=== PATIENT | male | born 1950 | race Caucasian/White ===

== ENCOUNTER 2019-03-15 15:19 | Inpatient (IN) | payer OTHER ==
[~2019-03-15] VITALS: Ht 185.4 cm; Wt 103.2 kg
[~2019-03-15 15:19] MED LIST: IBUP400; LISI10 PO; MELO7.5; NAPR220; OMEP20ER; TRAM50 PO
[2019-03-15] MEDS ORDERED: GABA100 PO (16:03)
[2019-03-15 16:50] LABS: BASOPHILS ABSOLUTE AUTO 0.03 K/mm3 (0.00-0.23); BASOPHILS PERCENT AUTO 1 % (0-2); EOSINOPHILS ABSOLUTE AUTO 0.19 K/mm3 (0.00-0.68); EOSINOPHILS PERCENT AUTO 3 % (0-6); Hematocrit 42.3 % (37.0-53.0); Hemoglobin 13.8 g/dL (13.5-17.5); IMMATURE GRAN ABSOLUTE AUTO 0.02 K/mm3 (0.00-0.10); IMMATURE GRAN PERCENT AUTO 0 % (0-1); LYMPHOCYTES ABSOLUTE AUTO 1.34 K/mm3 (0.84-5.20); LYMPHOCYTES PERCENT AUTO 22 % (21-46); MONOCYTES ABSOLUTE AUTO 0.63 K/mm3 (0.16-1.47); MONOCYTES PERCENT AUTO 11 % (4-13); Mean Corpuscular HGB 28.1 pg (26.0-34.0); Mean Corpuscular HGB Conc 32.6 g/dL (31.5-36.5); Mean Corpuscular Volume 86 fL (80-100); Mean Platelet Volume 8.7 fL (9.1-12.4); NEUTROPHILS PERCENT AUTO 63 % (41-73); Platelet Count 267 K/mm3 (150-400); RDW Coefficient Variation 12.7 % (11.7-14.2); RDW Standard Deviation 40.1 fL (35.1-46.3); Red Blood Cell Count 4.91 M/mm3 (4.30-5.90); White Blood Cell Count 6.01 K/mm3 (4.00-11.30)
[2019-03-15 17:05] LABS: Alanine Aminotransfer (ALT/SGP 28 U/L (12-78); Albumin, Blood 3.6 g/dL (3.4-5.0); Albumin/Globulin Ratio 0.8 (0.8-1.8); Alk Phos 83 U/L (50-136); Anion Gap 4 mmol/L (6-16); Aspartate Aminotrans (AST/SGOT 23 U/L (12-37); Bilirubin, Total 0.4 mg/dL (0.1-1.0); Blood Urea Nitrogen 14 mg/dL (8-24); Bun/Creatinine Ratio 14.4 (12.0-20.0); CO2, Blood 29 mmol/L (21-32); Chloride, Blood 104 mmol/L (98-108); Creatinine, Blood 0.97 mg/dL (0.60-1.20); Globulin, Blood 4.3 g/dL (2.2-4.0); Glomerular Filtration Rate >60 (60-); Glucose, Blood 87 mg/dL (70-99); Potassium, Blood 3.8 mmol/L (3.5-5.5); Sodium, Blood 137 mmol/L (136-145); Total Protein, Blood 7.9 g/dL (6.4-8.2)
[2019-03-15 17:14] LABS: International Normalized Ratio 0.97; Prothrombin Time Results 10.3 Sec (9.7-11.5)
--- NOTE | 2019-03-15 18:35 | NUR ---
REPORT RECIEVED FROM JOSE BENTON AT THIS TIME. ROOM READY FOR PATIENT TO ARRIVE
--- NOTE | 2019-03-16 06:10 | NUR ---
SHIFT SUMMARY PT ADMITTED FOR DVT OF THE RIGHT LEG. PT ARRIVES ON A HEPARIN DRIP, INFUSING AT 13U/KG/HR. AT BEDSIDE. PT ALERT AND ORIENTED, UP TO BATHROOM WITH SBA. PT STEADY ON FEET. USES CALL LIGHT APPROPRIATELY. PT ALSO HAS IVF'S INFUSING CONCURRENTLY WITH HEPARIN. HEPARIN BUMPED UP TO 15U/KG/HR DURING THE NIGHT. PT NPO AFTER MIDNIGHT FOR THROMBECTOMY TODAY. MEDICATED WITH TYLENOL FOR CHRONIC LEFT SHOULDER/ARM PAIN. NO ACUTE EVENTS NOTED DURING THE NIGHT, WILL CONTINUE TO MONITOR.
--- NOTE | 2019-03-16 15:22 | NUR ---
NURSE RECEIVED A CALL FROM DR VALDES WHO STATES THAT HE WILL DO THE THROMBECTOMY ON Sunday03/17/19. HE STATED THAT PATIENT SHOULD BE NPO AT MIDNIGHT AND THAT IT WAS OKAY FOR HIM TO EAT NOW. NURSE IN IMMEDIATELY WITH FOOD FOR PATIENT.
--- NOTE | 2019-03-16 18:52 | NUR ---
SHIFT SUMMARY PT NPO FOR MOST OF THE SHIFT AWAITING THROMBECTOMY, SEE PRIOR NOTE. PT UP AD TONI IN ROOM. HEPARIN INFUSING PER ORDER. RATE INCREASED PER PHARMACY X2. PT HYPERTENSIVE WITH AFTERNOON VITALS 161/102. NURSE NOTIFIED DR TRIMBLE WHO ORDERED HYDRALAZINE. ONE DOSE GIVEN PER EMAR, BP IMPROVED . BED IN LOW POSITION, CALL LIGHT WITHIN REACH. NO OTHER CHANGES THIS SHIFT
[2019-03-17 05:48] LABS: BASOPHILS ABSOLUTE AUTO 0.03 K/mm3 (0.00-0.23); BASOPHILS PERCENT AUTO 1 % (0-2); EOSINOPHILS PERCENT AUTO 4 % (0-6); Hematocrit 39.9 % (37.0-53.0); Hemoglobin 13.1 g/dL (13.5-17.5); IMMATURE GRAN ABSOLUTE AUTO 0.02 K/mm3 (0.00-0.10); IMMATURE GRAN PERCENT AUTO 0 % (0-1); LYMPHOCYTES ABSOLUTE AUTO 1.32 K/mm3 (0.84-5.20); LYMPHOCYTES PERCENT AUTO 23 % (21-46); MONOCYTES PERCENT AUTO 11 % (4-13); Mean Corpuscular HGB Conc 32.8 g/dL (31.5-36.5); Mean Corpuscular Volume 85 fL (80-100); Mean Platelet Volume 9.1 fL (9.1-12.4); NEUTROPHILS ABSOLUTE AUTO 3.53 K/mm3 (1.96-9.15); NEUTROPHILS PERCENT AUTO 62 % (41-73); Platelet Count 293 K/mm3 (150-400); RDW Coefficient Variation 12.7 % (11.7-14.2); RDW Standard Deviation 39.3 fL (35.1-46.3); Red Blood Cell Count 4.68 M/mm3 (4.30-5.90)
--- NOTE | 2019-03-17 05:58 | NUR ---
SHIFT SUMMARY PT SLEPT FAIR DURING NIGHT, REMAINED WITH PT DURING THE NIGHT. PT NPO AFTER MIDNIGHT FOR PROCEDURE THIS AM. PT GIVEN ICE PACK FOR RIGHT SHOULDER/ARM PAIN, WILL CONTINUE TO MONITOR.
[2019-03-18 05:06] LABS: BASOPHILS ABSOLUTE AUTO 0.03 K/mm3 (0.00-0.23); BASOPHILS PERCENT AUTO 1 % (0-2); EOSINOPHILS ABSOLUTE AUTO 0.18 K/mm3 (0.00-0.68); EOSINOPHILS PERCENT AUTO 3 % (0-6); Hematocrit 41.7 % (37.0-53.0); Hemoglobin 13.5 g/dL (13.5-17.5); IMMATURE GRAN ABSOLUTE AUTO 0.02 K/mm3 (0.00-0.10); IMMATURE GRAN PERCENT AUTO 0 % (0-1); LYMPHOCYTES ABSOLUTE AUTO 1.59 K/mm3 (0.84-5.20); LYMPHOCYTES PERCENT AUTO 25 % (21-46); MONOCYTES PERCENT AUTO 9 % (4-13); Mean Corpuscular HGB 27.8 pg (26.0-34.0); Mean Corpuscular HGB Conc 32.4 g/dL (31.5-36.5); Mean Corpuscular Volume 86 fL (80-100); Mean Platelet Volume 8.8 fL (9.1-12.4); NEUTROPHILS ABSOLUTE AUTO 3.98 K/mm3 (1.96-9.15); NEUTROPHILS PERCENT AUTO 62 % (41-73); Platelet Count 291 K/mm3 (150-400); RDW Coefficient Variation 12.8 % (11.7-14.2); RDW Standard Deviation 39.8 fL (35.1-46.3); Red Blood Cell Count 4.85 M/mm3 (4.30-5.90)
--- NOTE | 2019-03-18 05:29 | NUR ---
SHIFT SUMMARY PT HAD UNEVENTFUL NIGHT. LIDOCAINE PATCH PLACED ON LEFT SHOULDER AREA AT HS ORDERED. PT C/O BURNING AND TOOK PATCH OFF. REQUESTED TYLENOL AND AN ICE PACK, GIVEN. HAS BEEN NPO SINCE MIDNIGHT FOR PROCEDURE TODAY. REMAINS WITH PT T/O NIGHT. IV HEPARIN AND IVF'S INFUSING PER PUMP WITHOUT DIFFICULTY. WILL CONTINUE TO MONITOR.
[2019-03-18 11:32] LABS: Source, Urine Catheter
--- NOTE | 2019-03-18 11:32 | NUR ---
PT ARRIVED IN ICU AT 1000 S/P THROMBECTOMY/THROMOLYSIS OF RIGHT DVT. PT AWAKE AND ALERT. C/O PAIN TO RIGHT LEG AND LEFT SHOULDER (FELL ON SHOULDER 5MTHS AGO) 02/14. CIRC CHECK TO BLE WNL. TPA/CATH VINICIO INFUSING AT 25MLS/HR TO RIGHT P.T. SITE. HEPARIN INFUSING TO POPLITEAL SITE AT 6MLS/HR. DR VALDES CALLED FOR PAIN MEDS AND URINARY RETENTION; FENT 25MCG GIVEN IV, 14F COUDE PLACED W/O DIFF. UA SENT PER PROTOCOL. NEURO CHECK WNL AT 1000 AND 1100; NO NEURO DEFICITS NOTED. FAMILY AT BEDSIDE.
[2019-03-18 11:43] LABS: Bilirubin, Urine Neg (Neg); Blood, Urine Neg (Neg); Glucose Qualitative, Urine Neg (Neg); Ketones, Urine Neg (Neg); Leukocyte Esterase, Urine Neg (Neg); Nitrite, Urine Neg (Neg); Protein, Urine Neg (Neg); Urobilinogen, Urine NORM (Normal); pH, Urine 6.5 (5.0-8.0)
[2019-03-18 12:01] LABS: Appearance, Urine Clear (Clear); Color, Urine Yellow (P-Yellow)
--- NOTE | 2019-03-18 12:26 | NUR ---
BP 178/117. PT C/O ACHING PAIN TO RIGHT LEG 4-5. CIRC CHECK WNL, IV SITES TO LEG WNL, NEURO CHECK WNL. FENT 25MCG GIVEN IV FOR PAIN, HYDRALAZINE 10 IVP GIVEN.
--- NOTE | 2019-03-18 14:53 | NUR ---
PT C/O MORE SEVERE PAIN 03/17 TO AREA RIGHT ABOVE RIGHT P.T. SHEATH. NO REDNESS OR SWELLING NOTED TO AREA, IV PATENT AND INFUSING. PT W CONTINUED HTN. DR VALDES CALLED R/T THESE ISSUES. ORDERS TO GIVE FENT AND VERSED 1MG ALONG WITH LABETALOL IV. PT TO RETURN TO HOUSEHOLD COORDINATOR SOON.
--- NOTE | 2019-03-18 15:08 | NUR ---
PT STATES PAIN IS NOW 2/10 TO RIGHT LEG. PT NAUSEATED, ZOFRAN GIVEN. 02 PLACED FOR SATS 88-91%, PT DENIES SOB OR PAIN OTHER THAN R LEG PAIN
--- NOTE | 2019-03-18 16:00 | NUR ---
RIGHT SHEATH SITES ARE WNL, INFUSING HEPARIN AND TPA/CATHFLO, NO SWEELING, OR REDNESS NOTED. RIGHT LEG ELEVATED SLIGHTLY ON PILLOW FOR COMFORT. NEURO CHECK WNL, NO DEFICITS NOTED.
--- NOTE | 2019-03-18 17:33 | NUR ---
PT TAKEN BACK TO [facility] DRIVER FOR PICTURES/VIEWS OF RIGHT LEG.
--- NOTE | 2019-03-18 18:26 | NUR ---
PT RETURNED FROM [facility] AWAKE. C/O PAIN TO R LEG 11/17. PT EATING DINNER, TOLERATING WELL. HEP AND CATH VINIICO INFUSING BEFORE. CIRC CHECK WNL, NEURO CHECK WNL. NO SWELLING, OR BLEEDING TO SHEATH SITES. SOME TENDERNESS TO CALF AND ANKLE AREA
--- NOTE | 2019-03-18 21:12 | NUR ---
START OF SHIFT: BEDSIDE REPORT FROM GUNJAN GARCIA. PT AWAKE, A+O AND WATCHING TV WITH SPOUSE AT BEDSIDE. VSS. R POPLITEAL AND PEDAL ACCESS SITES ASSESSED AND WNL. HEPARIN AND CATH-VINICIO gtt VERIFIED. PEDAL PULSES + X2. PT REPOSITIONED SLIGHT TO THE RIGHT SIDE AND COVERED WITH WARM BLANKETS.
--- NOTE | 2019-03-18 22:03 | NUR ---
PT C/O INCREASIN PAIN AND BURNING TO L SHOULDER AND INCREASING PAIN TO R LE. PT MEDICATED WITH BENADRYL, FENTANYL, AND ICE APPLIED TO L SHOULDER. SPOUSE REMAINS AT BEDSIDE.
--- NOTE | 2019-03-19 00:19 | NUR ---
NEURO CHECK WNL. R POPLITEAL AND PEDAL SHEATHS WNL. VSS. PT SLEEPING BUT AWAKENS EASILY TO RN AT BEDSIDE. CALL LIGHT WITHIN REACH.
[2019-03-19 04:03] LABS: BASOPHILS ABSOLUTE AUTO 0.02 K/mm3 (0.00-0.23); BASOPHILS PERCENT AUTO 0 % (0-2); EOSINOPHILS ABSOLUTE AUTO 0.08 K/mm3 (0.00-0.68); EOSINOPHILS PERCENT AUTO 1 % (0-6); Hematocrit 39.1 % (37.0-53.0); Hemoglobin 12.9 g/dL (13.5-17.5); IMMATURE GRAN ABSOLUTE AUTO 0.04 K/mm3 (0.00-0.10); IMMATURE GRAN PERCENT AUTO 1 % (0-1); LYMPHOCYTES ABSOLUTE AUTO 0.89 K/mm3 (0.84-5.20); LYMPHOCYTES PERCENT AUTO 11 % (21-46); MONOCYTES ABSOLUTE AUTO 0.87 K/mm3 (0.16-1.47); MONOCYTES PERCENT AUTO 11 % (4-13); Mean Corpuscular HGB 28.2 pg (26.0-34.0); Mean Corpuscular Volume 85 fL (80-100); Mean Platelet Volume 8.7 fL (9.1-12.4); NEUTROPHILS ABSOLUTE AUTO 5.88 K/mm3 (1.96-9.15); NEUTROPHILS PERCENT AUTO 76 % (41-73); Platelet Count 205 K/mm3 (150-400); RDW Coefficient Variation 13.2 % (11.7-14.2); RDW Standard Deviation 40.2 fL (35.1-46.3); Red Blood Cell Count 4.58 M/mm3 (4.30-5.90); White Blood Cell Count 7.78 K/mm3 (4.00-11.30)
--- NOTE | 2019-03-19 05:43 | NUR ---
PT RESTED T/O NOC WITH OCCASIONAL C/O LEFT SHOULDER AND RLE PAIN. PT REPORTED RELIEF AFTER FENTNYL 50mcg ADMIN (X2). VITALS REMAINED STABLE. NEURO CHECKS REMAINED WNL WITH RLE REMAINING STRAIGHT AND POPLITEAL AND P.T. SHEATHS REMAINING PATENT AND SECURE. FIBRINOGEN VALUE DECREASED BUT REMAINED WITHIN THE PARIMETERS PER ORDER. HEPARIN 6mL/hr CONTINUING gtt TO THE POPLITEAL SHEATH AND CATHFLO 1mg/hr THROUGH PEDAL SHEATH. PT'S SPOUSE REMAINED AT BEDSIDE. WILL REPORT OFF TO ONCOMING RN.
--- NOTE | 2019-03-19 08:32 | NUR ---
CARE ASSUMED CARE AND REPORT ASSUMED FROM PATY GARCIA. PT SITTING UP IN BED WATCHING TV. AT BEDSIDE. TWO SHEATHS SECURED IN R LOWER LEG WITH HEPARIN INFUSING INTO ONE AND CATHFLO INFUSING INTO THE SECOND ONE. PEDAL PULSES PALPABLE AND 2+, LEG IS WARM AND COLOR PINK. VSS. NSR, HR 80S. AFEBRILE. SPO2 95% ON RA. LUNG SOUNDS CLEAR. C/O MILD PAIN TO LEG AND MODERATE PAIN TO L SHOULDER; FENTANYL 50 MCG IVP GIVEN FOR PAIN CONTROL. LIDOCAINE PATCH REMOVED FROM L SHOULDER. REMAINS NPO AT THIS TIME. WILL CONTINUE TO MONITOR.
--- NOTE | 2019-03-19 12:12 | NUR ---
REASSESSMENT PT REMAINS IN BED ATTEMPTING TO KEEP R LEG STRAIGHT POSSIBLE. 2 SHEATHS REMAIN SECURED IN R LEG; ONE INFUSING HEPARIN AND ONE INFUSING CATHFLO. SMALL AMOUNT OF BLOODY OOZE FROM POPLITEAL SHEATH; WILL MONITOR. PT REMAINS NPO. AWIAITNG BEEF SKINNER. AT BEDSIDE. FENTANYL GIVEN FOR PAIN CONTROL. VSS. AFEBRILE. NSR, HR 80S. PENA CATH REMAINS SECURED. PT HAS OCCASIONAL PRODUCTIVE COUGH AND STATES HE HIS SINUSES ARE DRIANING AND THAT HE NORMALLY HAS SEASONAL ALLERGIES. PEDAL PULSES PALPABLE, FOOT IS PINK AND WARM. WILL CONTINUE TO MONTIOR.
--- NOTE | 2019-03-19 12:38 | NUR ---
HANDOFF REPORT HANDED OFF TO ENRIKE GRIJALVA RN AT THIS TIME.
--- NOTE | 2019-03-19 13:30 | NUR ---
Assumed care from Liza GARCIA. Patient has left for [facility] , he has had TPA infusing to RLE Prior to assuming care. has followed him out.
--- NOTE | 2019-03-19 15:30 | NUR ---
Patient returned at 1430 and has two CHG dressing, one on right popiteal area and one and dorsalis pedis. Both dressings are clead dry and intact and 2+ pedal pulses. Dr Castro has been in to see spouse and have communicated with Dr Vincent for any new orders prior to finishing discharge.
[2019-03-19] MEDS ORDERED: TYLENOL325 MG PO (16:36)
[2019-03-19] MEDS ORDERED: BENADRYL25 MG PO (16:37)
[2019-03-19] MEDS ORDERED: HYDCHL25 PO (16:38)
[2019-03-19] MEDS ORDERED: LIDO700A20 TOP (16:39)
[2019-03-19] MEDS ORDERED: ONDA4ODT MM (16:40)
[2019-03-19] MEDS ORDERED: MELA3 PO (16:40)
[2019-03-19] MEDS ORDERED: XARELTO20 MG PO (16:41)
[2019-03-19] MEDS ORDERED: XARELTO15 MG PO (16:41)
--- NOTE | 2019-03-19 17:14 | NUR ---
Patient was discharged home. He and his were given written discharge orders. I called and faxed meds to [facility] pharmacys. Reviewed all current and new meds with patient and spouse. They returned understanding and gave them a card if they need more information. I pulled two UV'as from right arm and placed gauze and wrapped with coban. Gave patient education about DVT's. Gave free month xarellto. He was taken to [facility] by wheelchair. Gave verbal instructions of site care and partial weight bearing.
== END 2019-03-19 17:00 | disposition home or self-care (01) | DRG 272 ==
LOC: ER 15:19 → MEDS 17:17 → ICUE 17:17 → MEDS 18:47 → ICUE 03-18 10:03
PROVIDERS: Physician Assistant; Radiology Diagnostic Radiology; ADMIT Family Medicine
PROC: 06CM3ZZ Extirpation of Matter from Right Femoral Vein, Percutaneous Approach (ICD-10-PCS; principal; 2019-03-18)
PROC: 06CY3ZZ Extirpation of Matter from Lower Vein, Percutaneous Approach (ICD-10-PCS; 2019-03-18)
PROC: 3E03317 Introduction of Other Thrombolytic into Peripheral Vein, Percutaneous Approach (ICD-10-PCS; 2019-03-18)
DX: I82.4Z1 Acute embolism and thrombosis of unspecified deep veins of right distal lower extremity (principal); I82.431 Acute embolism and thrombosis of right popliteal vein; I82.441 Acute embolism and thrombosis of right tibial vein; K21.9 Gastro-esophageal reflux disease without esophagitis; M54.9 Dorsalgia, unspecified; I10 Essential (primary) hypertension; M25.512 Pain in left shoulder
CPT/HCPCS: 36005; 36415; 37187; 37212; 37213; 37214; 37238; 37239; 37248; 37252; 51702; 75820; 75825; 76937; 80053; 81003; 85025; 85384; 85610; 85730; 93971; 96365; 99152; 99153; 99284-25; A9270; C1724; C1725; C1769; C1887; C1894; J0360; J0780; J1644; J2250; J2405; J2997; J3010; J7030; J7040; J7050; Q0163; Q9967

== ENCOUNTER 2020-09-16 11:20 | Day surgery (SDC) | payer OTHER ==
[~2020-09-16] VITALS: Ht 182.9 cm; Wt 107.8 kg
[~2020-09-16 11:20] MED LIST changes: +BENADRYL25 MG PO; +GABA100 PO; +HYDCHL25 PO; +LIDO700A20 TOP; +MELA3 PO; +OMEP20ER PO; +ONDA4ODT MM; +TYLENOL325 MG PO; +XARELTO15 MG PO; +XARELTO20 MG PO
--- NOTE | 2020-09-16 12:05 | NUR ---
09/16/20 1205 Karen Long (Lisa ELEVATED BP REPORTED TO ANESTHESIOLOGIST.
--- NOTE | 2020-09-16 13:28 | NUR ---
09/16/20 1328 Brenda Riggins LEFT ELBOW DRY, RED. NOT OPEN. 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
== END 2020-09-16 15:38 | disposition home or self-care (01) ==
LOC: ORSCSDS 11:20
DX: M75.122 Complete rotator cuff tear or rupture of left shoulder, not specified as traumatic (principal); M75.22 Bicipital tendinitis, left shoulder; M75.42 Impingement syndrome of left shoulder; K21.9 Gastro-esophageal reflux disease without esophagitis; Z79.899 Other long term (current) drug therapy
CPT/HCPCS: C1713; J0171; J0690; J2250; J2704; J3010; J7120

== ENCOUNTER 2022-11-15 17:52 | Emergency (ER) | payer OTHER ==
[~2022-11-15] VITALS: Ht 185.4 cm; Wt 106.1 kg
== END 2022-11-15 18:51 | disposition home or self-care (01) ==
LOC: ER 17:52
DX: I82.402 Acute embolism and thrombosis of unspecified deep veins of left lower extremity (principal); Z79.899 Other long term (current) drug therapy
CPT/HCPCS: 99281

== ENCOUNTER 2023-02-26 10:23 | Inpatient (IN) | payer OTHER ==
[~2023-02-26] VITALS: Ht 185.4 cm; Wt 109.2 kg
[2023-02-26] VITALS (17 sets, daily range): BP systolic 105–139; BP diastolic 67–92
[~2023-02-26 10:23] MED LIST changes: +AZELASTINE137 MCG/01; +CEFU500T30 PO
[2023-02-26 12:46] LABS: Hematocrit 46.9 % (37.0-53.0); Hemoglobin 15.4 g/dL (13.5-17.5); Mean Corpuscular HGB 27.4 pg (26.0-34.0); Mean Corpuscular HGB Conc 32.8 g/dL (31.5-36.5); Mean Corpuscular Volume 83 fL (80-100); Mean Platelet Volume 9.7 fL (9.1-12.4); Platelet Count 209 K/mm3 (150-400); RDW Coefficient Variation 13.1 % (11.7-14.2); Red Blood Cell Count 5.63 M/mm3 (4.30-5.90); White Blood Cell Count 5.09 K/mm3 (4.00-11.30)
[2023-02-26 12:56] LABS: Albumin, Blood 4.2 g/dL (3.4-5.0); Albumin/Globulin Ratio 1.3 (0.8-1.8); Bilirubin, Total 0.5 mg/dL (0.1-1.0); Bun/Creatinine Ratio 16.5 (12.0-20.0); Calcium, Blood 9.8 mg/dL (8.5-10.1); Creatinine, Blood 1.09 mg/dL (0.60-1.20); Globulin, Blood 3.2 g/dL (2.2-4.0); Total Protein, Blood 7.4 g/dL (6.4-8.2)
[2023-02-26 12:59] LABS: International Normalized Ratio 1.04; Prothrombin Time Results 10.9 Sec (9.7-11.5)
[2023-02-26] MEDS ORDERED: PSEUDOEPHEDRINE30 M1 PO (13:03)
[2023-02-26 17:52] LABS: BASOPHILS ABSOLUTE AUTO 0.03 K/mm3 (0.00-0.23); BASOPHILS PERCENT AUTO 0 % (0-2); EOSINOPHILS ABSOLUTE AUTO 0.08 K/mm3 (0.00-0.68); EOSINOPHILS PERCENT AUTO 1 % (0-6); Hematocrit 45.3 % (37.0-53.0); Hemoglobin 14.7 g/dL (13.5-17.5); IMMATURE GRAN ABSOLUTE AUTO 0.04 K/mm3 (0.00-0.10); IMMATURE GRAN PERCENT AUTO 0 % (0-1); LYMPHOCYTES ABSOLUTE AUTO 1.16 K/mm3 (0.84-5.20); LYMPHOCYTES PERCENT AUTO 11 % (21-46); MONOCYTES ABSOLUTE AUTO 0.69 K/mm3 (0.16-1.47); MONOCYTES PERCENT AUTO 7 % (4-13); Mean Corpuscular HGB 27.6 pg (26.0-34.0); Mean Corpuscular HGB Conc 32.5 g/dL (31.5-36.5); Mean Corpuscular Volume 85 fL (80-100); Mean Platelet Volume 9.5 fL (9.1-12.4); NEUTROPHILS ABSOLUTE AUTO 8.47 K/mm3 (1.96-9.15); NEUTROPHILS PERCENT AUTO 81 % (41-73); Platelet Count 213 K/mm3 (150-400); RDW Coefficient Variation 13.2 % (11.7-14.2); RDW Standard Deviation 41.1 fL (35.1-46.3); Red Blood Cell Count 5.33 M/mm3 (4.30-5.90); White Blood Cell Count 10.47 K/mm3 (4.00-11.30)
--- NOTE | 2023-02-26 19:25 | NUR ---
ICU ADMISSION / SHIFT SUMMARY: PT ARRIVED TO ICU-02 AT APPROX 1620 S/P CORONARY ANGIOGRAM & STENT PLACEMENT. ON ARRIVAL, THE PT IS A&O TO ALL, PLEASANT & COOPERATIVE. HE DOES NEED SOME REMINDERS NOT TO USE HIS RIGHT WRIST AT TIMES. TR BAND IN PLACE TO RIGHT WRIST INFLATED W/ 12 CC AIR. DIGITS ARE PINK W/ CAP REFILL 3 SEC. TENDER TO PALPATION, SENSATION INTACT. HE STS HAVING CP 2/10 AT THAT TIME, CP HAS NOW COMPLETELY RESOLVED. LS CLEAR, PT ON RA W/ O2 SATS > 92%. MONITOR SHOWS SR W/ HR 60-70s, BP STABLE. PT HAS NO GI COMPLAINTS & IS TOLERATING PO INTAKE WELL. VOIDS W/O DIFFICULTY USING URINAL AT BEDSIDE. SKIN CONDITION OVERALL INTACT, FRAGILE. RIGHT RADIAL PUNCTURE SITE WNL; NO BLEEDING OR HEMATOMA FORMATION NOTED. TR BAND REMAINS FULLY INFLATED FOR ORDERS TO BEGIN DELFLATION AT LEAST 3 HRS AFTER TR BAND PLACED.
[2023-02-26 22:25] LABS: CPK Creatine Kinase 230 U/L (39-308)
[2023-02-27] VITALS (10 sets, daily range): BP systolic 108–144; BP diastolic 70–90
--- NOTE | 2023-02-27 03:55 | NUR ---
AT APPROX 0218 PT REPORTED CHEST PAIN WITH 3/10 PAIN. SBP AT THIS TIME 140'S, HR 70'S. PT REPORTS THIS PAIN WAS THE SAME BEFORE HE WAS SENT TO THE MH TEACHER YESTERDAY. MEDICATED WITH NITRO PER EMAR WITH NO RESOLUTION TO CHEAT PAIN. EKG DONE AND SENT TO DR NAGEL. PT BEGAN TO BE DIAPHORETIC WITH SOB. C/O CONSTANT CHEST PAIN AT THIS TIME WELL WITH 4/[address] NAGEL AT 0240 WITH CURRENT INFORMATION. MORPHINE GIVEN WITH NEW ORDER OF DILAUDID WELL. ANOTHER EKG DONE 30 MINS AFTER MEDICATION ADMIN. PAIN REPORTED BY PT AT THAT TIME OF 10/17. NO NEW ORDERS FROM DR NAGEL AT THIS TIME. NO SIGNIFICANT CHANGES TO EKG.
[2023-02-27 05:50] LABS: BASOPHILS ABSOLUTE AUTO 0.02 K/mm3 (0.00-0.23); BASOPHILS PERCENT AUTO 0 % (0-2); EOSINOPHILS ABSOLUTE AUTO 0.06 K/mm3 (0.00-0.68); EOSINOPHILS PERCENT AUTO 1 % (0-6); Hematocrit 41.4 % (37.0-53.0); Hemoglobin 13.4 g/dL (13.5-17.5); IMMATURE GRAN ABSOLUTE AUTO 0.03 K/mm3 (0.00-0.10); IMMATURE GRAN PERCENT AUTO 0 % (0-1); LYMPHOCYTES ABSOLUTE AUTO 0.93 K/mm3 (0.84-5.20); LYMPHOCYTES PERCENT AUTO 10 % (21-46); MONOCYTES PERCENT AUTO 9 % (4-13); Mean Corpuscular HGB 27.2 pg (26.0-34.0); Mean Corpuscular HGB Conc 32.4 g/dL (31.5-36.5); Mean Corpuscular Volume 84 fL (80-100); Mean Platelet Volume 9.9 fL (9.1-12.4); NEUTROPHILS ABSOLUTE AUTO 7.59 K/mm3 (1.96-9.15); NEUTROPHILS PERCENT AUTO 80 % (41-73); Platelet Count 194 K/mm3 (150-400); RDW Coefficient Variation 13.3 % (11.7-14.2); RDW Standard Deviation 41.1 fL (35.1-46.3); Red Blood Cell Count 4.93 M/mm3 (4.30-5.90); White Blood Cell Count 9.53 K/mm3 (4.00-11.30)
[2023-02-27 06:13] LABS: Bun/Creatinine Ratio 17.8 (12.0-20.0); Calcium, Blood 8.7 mg/dL (8.5-10.1); Creatinine, Blood 1.07 mg/dL (0.60-1.20); Potassium, Blood 4.3 mmol/L (3.5-5.5)
--- NOTE | 2023-02-27 06:15 | NUR ---
END OF SHIFT SUMMARY A/O X4. PT SPOUSE IN ROOM WITH PT ALL NIGHT. RESP- >93% ON RA. PT BECAME SOB AROUND 0230 WHEN HAVING CHEST PAIN WELL. 2L NC GIVEN FOR COMFORT. CARDIAC- NSR. SBP 110'S. HR 60-70'S. PLEASE SEE PRIOR NOTE ON CHEST PAIN EPISODE EARLY IN THE AM. AGROSTAT ADMINISTERED AND RUNNING PER EMAR. AGROSTAT TO BE DC'D AT 0900 TODAY WITH START OF XARELTO AT THAT TIME. GI,- PT USES URINAL INDEPENDANTLY. NO BM THIS SHIFT. PT TAKES ORAL MEDICATIONS WITHOUG DIFFICULTY WITH WATER. PT IS VERY HARD OF HEARING. WILL CONTINUE TO MONITOR PT UNTIL REPORT GIVEN TO AM RN.
--- NOTE | 2023-02-27 09:15 | NUR ---
ASSUMED CARE / DR NAGEL: REPORT RECEIVED FROM AYLA Melo RN. ASSUMED CARE OF THIS PT AT APPROX 0700. ON ASSESSMENT, THE PT IS AWAKE, A&O TO ALL. HE DENIES CURRENT CP OR DISCOMFORT. LS CLEAR, PT ON RA W/ O2 SATS > 92%. MONITOR SHOWS SR W/ HR 60-70s, BP STABLE. NO GI COMPLAINTS, TOLERATING PO INTAKE WELL. VOIDS URINE W/O DIFFICULTY. SKIN OVERALL FRAGILE, INTACT. RIGHT RADIAL PUNCTURE SITE WNL; NO BLEEDING, BRUISING OR HEMATOMA FORMATION NOTED. WRIST IMMOBILIZER REMAINS IN PLACE. Q2H REPOSITIONING TO MAINTAIN SKIN INTEGRITY. DR NAGEL AT BEDSIDE THIS AM TO EVAL PT. HE STS TO STOP AGGRASTAT & GIVE AM MEDS OF BRILINTA/ XARELTO AT THAT TIME. HE HAS DISCUSSED THE PT's CP EPISODE THAT OCCURED LAST NIGHT & FEELS THAT IT WAS LIKELY MUSCULOSKELETAL IN NATURE, THE PAIN RESOLVED W/ TORADOL ADMIN PER EMAR. NO OTHER CHANGES AT THIS TIME. WILL CONTINUE TO MONITOR & UPDATE NEEDED.
--- NOTE | 2023-02-27 11:00 | NUR ---
Spiritual Care Visit. Pt. is awake sitting in a recliner and welcomes my visit. 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 Re-establish rapport and facilitate a life review, and nortmalized the Pt. experien. Pt. displays a bouyant attitude, and is engaged and aware. Prayed with Pt. Pt. verbalized gratitude for the spiritual care visit.
[2023-02-27 13:51] LABS: CPK Creatine Kinase 253 U/L (39-308)
--- NOTE | 2023-02-27 19:19 | NUR ---
SHIFT SUMMARY: NO ACUTE CHANGES SINCE PRIOR UPDATES. PT REMAINS A&O, PLEASANT & COOPERATIVE. NO C/O CP DURING THIS SHIFT. HE HAS BEEN UP TO THE CHAIR & AMBULATORY IN ROOM. VSS. HE WILL TRANSFER TO PCU-19 AT START OF NOC SHIFT ONCE ROOM HAS BEEN CLEANED. REPORT GIVEN TO AYLA Melo RN TO ASSUME CARE.
--- NOTE | 2023-02-27 20:30 | NUR ---
ARRIVAL TO [facility] PT ARRIVED TO U19 AT APPROXIMATLEY 2030. PT ARRIVED VIA WHEELCHAIR, SBA TRANSFER TO HOSPITAL BED. PT A&Ox4, CALLS AND COMMUNICATES NEEDS APPROPRIATELY. ORIENTED PT TO CALL LIGHT/UNIT. BP STABLE, SINUS 60's, DENIES CP/PRESSURE. SpO2> 92% RA, DENIES SOB. R RADIAL SITE FULLY RECOVERED AND WNL, ARM BOARD IN PLACE. AT BEDSIDE, STAYING OVER NIGHT.
[2023-02-28 00:25] VITALS: BP 149/88
[2023-02-28 04:18] VITALS: BP 156/103
--- NOTE | 2023-02-28 05:48 | NUR ---
SHIFT SUMMARY SEE PREVIOUS NOTE. PT A&Ox4, CALLS AND COMMUNCIATES NEEDS APPROPRIATELY. BP STABLE, SINUS 60's, DENIES CP/PRESSURE. SpO2> 92% RA, DENIES SOB. PT IND IN ROOM. AT BEDSIDE. R RADIAL SITE REMAINS WNL, ARM BOARD IN PLACE. NO OTHER EVENTS, WILL REPORT TO ONCOMING RN.
[2023-02-28 07:29] VITALS: BP 141/93
[2023-02-28 11:48] VITALS: BP 127/76
[2023-02-28 12:50] LABS: CHOL/HDL RATIO 3.5; Cholesterol 148 mg/dL (50-200); HDL Cholesterol 42 mg/dL (>39); LDL/HDL RATIO 2.1; Low Density Lipoprotein Chol 87 mg/dL (0-110); Triglycerides 93 mg/dL (30-160); Very Low Density Lipoprot Chol 18 mg/dL (6-32)
[2023-02-28 14:14] VITALS: BP 139/76
[2023-02-28] MEDS ORDERED: XARELTO20 MG PO (14:47)
[2023-02-28] MEDS ORDERED: ASPI81CH PO (14:47)
[2023-02-28] MEDS ORDERED: Prinivil10 MG PO (14:48)
[2023-02-28] MEDS ORDERED: TICA90TA PO (14:48)
[2023-02-28] MEDS ORDERED: METO50ER PO (14:48)
[2023-02-28] MEDS ORDERED: ATOR80 PO (14:48)
[2023-02-28] MEDS ORDERED: NITR.4SL SL (14:48)
--- NOTE | 2023-03-01 11:01 | NUR ---
LATE ENTRY: On 02/27, pt and his were given Advance Directives, along with answering questions pertaining to the form. Both pt and were alert and oriented and planned to take the forms home to finish, then give copies to both their PCP and [facility].
== END 2023-02-28 15:36 | disposition home or self-care (01) | DRG 246 ==
LOC: PCU 10:23 → MHTC 10:23 → ICUE 16:01 → MHTC 02-27 04:09 → ICUE 02-27 04:10 → PCU 02-27 20:38
PROVIDERS: Internal Medicine Cardiovascular Disease; ADMIT Physician Assistant
PROC: 027035Z Dilation of Coronary Artery, One Artery with Two Drug-eluting Intraluminal Devices, Percutaneous Approach (ICD-10-PCS; principal; 2023-02-26)
PROC: 4A023N7 Measurement of Cardiac Sampling and Pressure, Left Heart, Percutaneous Approach (ICD-10-PCS; 2023-02-26)
PROC: B2111ZZ Fluoroscopy of Multiple Coronary Arteries using Low Osmolar Contrast (ICD-10-PCS; 2023-02-26)
PROC: 02C03ZZ Extirpation of Matter from Coronary Artery, One Artery, Percutaneous Approach (ICD-10-PCS; 2023-02-26)
PROC: B240ZZ3 Ultrasonography of Single Coronary Artery, Intravascular (ICD-10-PCS; 2023-02-26)
DX: I25.110 Atherosclerotic heart disease of native coronary artery with unstable angina pectoris (principal); I50.41 Acute combined systolic (congestive) and diastolic (congestive) heart failure; M54.9 Dorsalgia, unspecified; K21.9 Gastro-esophageal reflux disease without esophagitis; G89.29 Other chronic pain; R94.31 Abnormal electrocardiogram [ECG] [EKG]; Z79.02 Long term (current) use of antithrombotics/antiplatelets; Z79.2 Long term (current) use of antibiotics; Z79.899 Other long term (current) drug therapy; Z86.718 Personal history of other venous thrombosis and embolism; Z98.890 Other specified postprocedural states; Z79.01 Long term (current) use of anticoagulants
CPT/HCPCS: 36415; 76937; 80048; 80053; 80061; 82550; 83718; 84484; 85025; 85027; 85347; 85610; 92921; 92978; 93005; 93010; 93017; 93454; 99152; 99153; A9270; C1725; C1753; C1757; C1769; C1874; C1887; C1894; C8929; C9600; J1644; J1885; J2250; J2270; J3010; J3246; J7030; J7040; J7050; Q9957; Q9967

== ENCOUNTER 2025-06-22 12:04 | Observation (INO) | payer OTHER ==
[~2025-06-22] VITALS: Ht 185.4 cm; Wt 108.9 kg
[~2025-06-22 12:04] MED LIST changes: +ASPI81CH PO; +ATOR80 PO; +METO50ER PO; +NITR.4SL SL; +PSEUDOEPHEDRINE30 M1 PO; +Prinivil10 MG PO; +TICA90TA PO
[2025-06-22 12:36] LABS: BASOPHILS ABSOLUTE AUTO 0.02 K/mm3 (0.00-0.23); BASOPHILS PERCENT AUTO 0 % (0-2); EOSINOPHILS ABSOLUTE AUTO 0.18 K/mm3 (0.00-0.68); EOSINOPHILS PERCENT AUTO 4 % (0-6); Hematocrit 44.6 % (37.0-53.0); Hemoglobin 14.8 g/dL (13.5-17.5); IMMATURE GRAN ABSOLUTE AUTO 0.01 K/mm3 (0.00-0.10); IMMATURE GRAN PERCENT AUTO 0 % (0-1); LYMPHOCYTES ABSOLUTE AUTO 1.69 K/mm3 (0.84-5.20); LYMPHOCYTES PERCENT AUTO 33 % (21-46); MONOCYTES ABSOLUTE AUTO 0.53 K/mm3 (0.16-1.47); MONOCYTES PERCENT AUTO 10 % (4-13); Mean Corpuscular HGB Conc 33.2 g/dL (31.5-36.5); Mean Corpuscular Volume 83 fL (80-100); NEUTROPHILS ABSOLUTE AUTO 2.71 K/mm3 (1.96-9.15); NEUTROPHILS PERCENT AUTO 53 % (41-73); NRBC ABSOLUTE 0.00 K/mm3 (0.00-0.02); NRBC Auto 0.0 /100 WBC (0.0-0.2); Platelet Count 226 K/mm3 (150-400); RDW Coefficient Variation 14.4 % (11.7-14.2); RDW Standard Deviation 43.4 fL (35.1-46.3)
[2025-06-22 12:54] LABS: Alanine Aminotransfer (ALT/SGP 28.0 U/L (12-78); Albumin, Blood 4.0 g/dL (3.4-5.0); Albumin/Globulin Ratio 1.2 (0.8-1.8); Anion Gap 7.0 mmol/L (3-11); Aspartate Aminotrans (AST/SGOT 18.0 U/L (12-37); Bilirubin, Total 0.4 mg/dL (0.1-1.0); Blood Urea Nitrogen 16.0 mg/dL (8-24); CO2, Blood 26.0 mmol/L (21-32); Calcium, Blood 9.3 mg/dL (8.5-10.1); Chloride, Blood 106.0 mmol/L (98-108); Creatinine, Blood 0.97 mg/dL (0.60-1.20); Globulin, Blood 3.2 g/dL (2.2-4.0); Glucose, Blood 136.0 mg/dL (70-99); Potassium, Blood 4.3 mmol/L (3.5-5.5); Sodium, Blood 135.0 mmol/L (136-145); Total Protein, Blood 7.2 g/dL (6.4-8.2)
[2025-06-22] MEDS ORDERED: Ondansetron HCl 2 MG / ML 2ML Vial IV PRN (17:45)
[2025-06-22] MEDS ORDERED: FLU VACC TS2025(65UP)/MF59C/PF 45 MCG/0.5 ML SYRINGE IM SCH (17:55)
[2025-06-22] MEDS ORDERED: Ketorolac Tromethamine 15mg Vial IV ONE (19:00)
[2025-06-22] MEDS ORDERED: DONE5 PO (20:19)
[2025-06-22] MEDS ORDERED: FLOMAX0.4 MG PO (20:20)
[2025-06-22] MEDS ORDERED: NIFE90ER PO (20:21)
[2025-06-22 20:46] VITALS: BP 169/101
[2025-06-22] MEDS ORDERED: Morphine Sulfate 4 MG/1 ML Injection IV PRN ×2 (22:15→23:30)
[2025-06-22] MEDS ORDERED: Labetalol HCL 5 MG/ML 4ML Injection (Single Dose) IV PRN (23:25)
[2025-06-22 23:28] VITALS: BP 133/89
[2025-06-22] MEDS ORDERED: NS 1,000 ML IV SCH (23:30)
[2025-06-23 03:52] VITALS: BP 144/82
--- NOTE | 2025-06-23 05:03 | NUR ---
ER ADMIT/SUMMARY: REPORT RECEIVED FROM EFRAIN (MANAGER LSW) AND PT T/F TO ROOM 356 VIA W/C AT 2349. PT ORIENTED TO ROOM AND CALL SYSTEM AND IS AWARE OF LIMITAIONS. HE'S A/OX4 AND [place] BUT IS ABLE TO ENDORSE NEEDS. HE REPORTS RECENT WEAKNESS, DIZZINESS AND SOB W/EXERTION SO IS SBA OOB FOR SAFETY. PT C/O DULL L.SIDED CHEST PRESSURE OF 2/10 THAT INTERMINTENTLY INCREASED TO 4-5/10 AND RADIATED TO L.ARM. HE ALSO REPORTED NAGGING SILVERIO W/BP'S TRENDING 160'S/100'S. TIFFANI (PRECISION LENS TECHNICIAN) WAS ALERTED TO THESE CONCERNS AND NEW ORDERS WERE RECEIVED FOR MORPHINE 2-4MG IV Q2H PRN, TYLENOL 500MG PO Q4H PRN AND LABETOLOL 10MG IV Q4H PRN. CP AND BP IMPROVED FOLLOWING IV MORPHINE AND TYLENOL WAS EFFECTIVE AT ALLEVIATING SILVERIO. NS INFUSES AT 100 ML/HR AND PT USES URINAL AD TONI. HE WAS COMMENCED ON TELE AND REMAINS NSR AT 60'S-70'S BPM. PT HAD SNACKS UPON ARRIVAL THEN WAS MADE NPO AT SC W/CARDIOLOGY CX CALLED TO 'S ANS.SERVICE. NO ACUTE CHANGES, VSS/AFEBRILE. WILL REPORT TO DAY RN.
[2025-06-23 05:35] LABS: Hematocrit 42.4 % (37.0-53.0); Hemoglobin 14.3 g/dL (13.5-17.5); Mean Corpuscular HGB Conc 33.7 g/dL (31.5-36.5); Mean Corpuscular Volume 84 fL (80-100); NRBC ABSOLUTE 0.00 K/mm3 (0.00-0.02); NRBC Auto 0.0 /100 WBC (0.0-0.2); Platelet Count 203 K/mm3 (150-400); RDW Coefficient Variation 14.6 % (11.7-14.2); RDW Standard Deviation 44.5 fL (35.1-46.3)
[2025-06-23 06:23] LABS: Anion Gap 11.0 mmol/L (3-11); Blood Urea Nitrogen 19.0 mg/dL (8-24); CO2, Blood 21.0 mmol/L (21-32); Calcium, Blood 8.8 mg/dL (8.5-10.1); Chloride, Blood 107.0 mmol/L (98-108); Creatinine, Blood 0.92 mg/dL (0.60-1.20); Glucose, Blood 113.0 mg/dL (70-99); Magnesium, Blood 2.1 mg/dL (1.6-2.4); Potassium, Blood 4.1 mmol/L (3.5-5.5); Sodium, Blood 135.0 mmol/L (136-145)
[2025-06-23 07:23] VITALS: BP 142/96
--- NOTE | 2025-06-23 19:27 | NUR ---
assumed care A/O VSS SOME C/O PAIN TO HEAD 02/14. TYLENOL GIVEN THIS AM. DR MADRID IN EARLY TO ASSESS PT AND GAVE DISCHARGE ORDERS. PT THEN GOT DRESSED AND REQUESTION TO LEAVE, DR NUNES NOTIFIED AND SPOKE WITH PT GIVING HIM HIS DISCHARGE ORDERS, IV WAS DCED AND PT TAKEN DOWN STAIRS VIA WHEELCHAIR
== END 2025-06-23 11:50 | disposition home or self-care (01) ==
LOC: ER 12:04 → MEDS 12:05 → ERHOLD 12:05 → MEDS 20:48
PROVIDERS: Nurse Practitioner Acute Care; Physician Assistant; ADMIT Internal Medicine
DX: R07.89 Other chest pain (principal); I25.10 Atherosclerotic heart disease of native coronary artery without angina pectoris; K21.9 Gastro-esophageal reflux disease without esophagitis; Z95.5 Presence of coronary angioplasty implant and graft; Z79.82 Long term (current) use of aspirin; Z79.01 Long term (current) use of anticoagulants; Z79.899 Other long term (current) drug therapy; Z86.718 Personal history of other venous thrombosis and embolism
CPT/HCPCS: 36415; 71046; 71260; 80048; 80053; 83690; 83735; 84484; 85025; 85027; 93005; 93010; 94760; 99285-25; A9270; G0378; J1885; J2270; J7030; Q9967